=== PATIENT | male | born 1985 | race Caucasian/White ===

== ENCOUNTER 2021-01-09 10:14 | Emergency (ER) | payer MEDICAID ==
[~2021-01-09] VITALS: Ht 157.5 cm; Wt 73.9 kg
[2021-01-09 10:18] VITALS: BP 141/88
--- NOTE | 2021-01-09 10:51 | NUR ---
PT TAKEN TO RAD VIA W/C
--- NOTE | 2021-01-09 11:01 | NUR ---
35 Y/O MALE C/O LEFT SIDE/RIB AND MID BACK PAIN SINCE THURSDAY. PT STATES HE SLIPPED AND FELL IN THE SHOWER AND HAS BEEN IN PAIN SINCE. PT REPORTS PAIN /10 AND STATES PAIN WORSENS WHEN SNEEZING OR ATTEMPTING TO SLEEP/LAY DOWN. PT A/O X4 WITH EVEN AND UNLABORED RESPIRATIONS MEDHX: DENIES ALLERGIES: DENIES
--- NOTE | 2021-01-09 11:12 | NUR ---
PT BACK FROM RAD
[2021-01-09] MEDS: HYDROcodone/APAP 5/325 MG 1 TAB TAB PO ONE (11:14)
[2021-01-09] MEDS: LIDOCAINE 5% 1 EA PATCH TP SCH (11:15)
[2021-01-09] MEDS ORDERED: LID5T TP (12:19)
[2021-01-09] MEDS ORDERED: ACET-2619 PO (12:19)
[2021-01-09] MEDS ORDERED: IBUP-2213 PO (12:19)
--- NOTE | 2021-01-09 12:28 | NUR ---
DPatient discharged with v/s stable. Written and verbal after care instructions ABOUT CHEST WALL PAIN given and explained. Patient alert, oriented and verbalized understanding of instructions. Ambulatory with steady gait. All questions addressed prior to discharge. ID band removed. Patient advised to follow up with PMD. Rx of TYLENOL, IBUPROFEN, AND LIDOCAINE PATCH given. Patient educated on indication of medication including possible reaction and side effects. Opportunity to ask questions provided and answered.
[2021-01-10] MEDS ORDERED: LIDOCAINE 5% 1 EA PATCH TP SCH (09:00)
== END 2021-01-09 12:28 | disposition home or self-care (01) ==
LOC: MED 10:14
DX: S20.212A Contusion of left front wall of thorax, initial encounter (principal); Z79.899 Other long term (current) drug therapy; W19.XXXA Unspecified fall, initial encounter; Y93.89 Activity, other specified; Y92.89 Other specified places as the place of occurrence of the external cause; Y99.8 Other external cause status
CPT/HCPCS: 71045; 72072; 99284

== ENCOUNTER 2021-03-29 10:15 | Inpatient (IN) | payer MEDICAID, SELFPAY ==
[~2021-03-29] VITALS: Ht 157.5 cm; Wt 73.1 kg
[~2021-03-29 10:15] MED LIST: ACET-2619 PO; IBUP-2213 PO; LID5T TP
[2021-03-29 11:21] VITALS: BP 120/68
--- NOTE | 2021-03-29 11:27 | NUR ---
PT GIVEN URINE CUP, PT TO WAIT IN LOBBY
[2021-03-29] MEDS ORDERED: FAMOTIDINE 20 MG TAB PO ONE (11:30)
[2021-03-29] MEDS ORDERED: ONDANSETRON 4 MG ODT PO ONE (11:30)
[2021-03-29 13:09] LABS: BASOPHILS # (AUTO) 0.1 K/uL (0.00-0.22); BASOPHILS % (AUTO) 0.4 % (0.0-2.0); EOSINOPHILS # (AUTO) 0.2 K/uL (0-0.4); EOSINOPHILS % (AUTO) 1.2 % (0.0-4.0); HEMATOCRIT 42.7 % (36-52); HEMOGLOBIN 14.8 g/dL (12.0-18.0); LYMPHOCYTES # (AUTO) 1.1 K/uL (2.0-11.5); LYMPHOCYTES % (AUTO) 5.7 % (20.5-51.1); MEAN CORPUSCULAR HEMOGLOBIN 29 pg (27-31); MEAN CORPUSCULAR HGB CONC 35 g/dL (33-37); MEAN CORPUSCULAR VOLUME 83.7 fL (80-94); MONOCYTES # (AUTO) 0.9 K/uL (0.8-1.0); NEUTROPHILS # (AUTO) 16.2 K/uL (1.8-7.7); NEUTROPHILS % (AUTO) 87.7 % (42.2-75.2); PLATELET COUNT (AUTO) 351 K/uL (140-450); RED CELL DISTRIBUTION WIDTH 13.6 % (11.6-13.7); WHITE BLOOD COUNT (AUTO) 18.5 K/uL (4.8-10.8)
[2021-03-29] MEDS ORDERED: ONDA4TAB PO (13:21)
[2021-03-29] MEDS ORDERED: FAMO-92 PO (13:21)
[2021-03-29 13:33] LABS: ANION GAP 13.6 (8-16); CREATININE 0.9 mg/dL (0.6-1.3); POTASSIUM 3.6 mmol/L (3.5-5.1); TOTAL BILIRUBIN 0.7 mg/dL (0.0-1.0)
--- NOTE | 2021-03-29 13:38 | NUR ---
PT BACK FROM CT, TAKEN TO CHAIR A
[2021-03-29] MEDS ORDERED: FAMOTIDINE 20 MG TAB ONE (13:47)
[2021-03-29] MEDS ORDERED: ONDANSETRON 4 MG ODT ONE (13:47)
[2021-03-29] MEDS ORDERED: NACL 0.9% 1,000 ML IV ONE (13:55)
[2021-03-29] MEDS ORDERED: MORPHINE SULFATE 4 MG/ML SYR IVP ONE (13:55)
[2021-03-29] MEDS ORDERED: MORPHINE SULFATE 4 MG/ML SYR IVP PRN (14:15)
[2021-03-29] MEDS ORDERED: MORPHINE SULFATE 2 MG/ML SYR IVP PRN (14:15)
[2021-03-29] MEDS ORDERED: ONDANSETRON 4 MG/2 ML VIAL IVP PRN ×2 (14:15→20:45)
[2021-03-29] MEDS ORDERED: metroNIDAZOLE 500 MG/NS PREMIX 100 ML IV ONE (14:30)
[2021-03-29] MEDS ORDERED: LORazepam 2 MG/ML VIAL IM/IVP PRN (15:25)
[2021-03-29] MEDS ORDERED: ONDANSETRON 4 MG/2 ML VIAL IM/IVP PRN (15:25)
[2021-03-29] MEDS ORDERED: ACETAMINOPHEN 325 MG TAB PO PRN (15:25)
[2021-03-29] MEDS ORDERED: ZOLPIDEM 5 MG TAB PO PRN (15:25)
[2021-03-29] MEDS ORDERED: MAG SULF 2000 MG/WATER PREMIX 50 ML IV PRN (15:25)
[2021-03-29] MEDS ORDERED: DOCUSATE SODIUM 100 MG GELCAP PO PRN (15:25)
[2021-03-29] MEDS ORDERED: POTASSIUM CHLORIDE 10 MEQ TABER PO PRN (15:25)
[2021-03-29] MEDS ORDERED: ONDANSETRON 4 MG TAB PO PRN (15:25)
--- NOTE | 2021-03-29 15:53 | NUR ---
GAVE REPORT TO ANALY CASE FOR PENDING ADMISSION. ETA 10MINUTES.
--- NOTE | 2021-03-29 15:54 | NUR ---
Patient will be admitted to care of DR. PENALOZA. Admited to MED SURG. Will go to room 119B. Belongings list completed. Report to ANALY CASE.
[2021-03-29 15:58] VITALS: BP 115/67
--- NOTE | 2021-03-29 15:58 | NUR ---
PT ARRIVED ONTO UNIT FROM ER. ARRIVED VIA WHEELCHAIR ACCOMPANIED BY ER NURSE. AMBULATED FROM WHEELCHAIR TO BED. PT IS AWAKE AND ALERT, AND COOPERATIVE. FRENCH SPEAKING ONLY. RESPIRATIONS ARE EVEN AND UNLABORED, ON ROOM AIR. LUNG SOUNDS CLEAR ON AUSCULTATION. HR REGULAR, 73 BPM. BOWEL SOUNDS PRESENT IN ALL QUADRANTS. PT STATED LAST BM WAS THIS MORNING. SKIN IS WARM, DRY, AND INTACT. PT VERBALIZED MINIMAL PAIN AT THIS TIME. STATES IS IT TOLERABLE. EDUCATED PT ON HOSPITAL POLICIES, CALL LIGHT SYSTEM, AND UNIVERSAL FALL PRECAUTIONS. CALL LIGHT WITHIN REACH. ALL SAFETY MEASURES IN PLACE. WILL CONTINUE TO MONITOR.
[2021-03-29] MEDS: NACL 0.9% 1,000 ML IV SCH ×2 (16:13→22:35)
[2021-03-29 16:25] VITALS: BP 115/67
[2021-03-29] MEDS: metroNIDAZOLE 500 MG TAB PO SCH (16:38)
[2021-03-29] MEDS ORDERED: cefTRIAXone 1,000 MG VIAL ONE (16:48)
[2021-03-29 16:51] LABS: CHOL/HDL RATIO 4.9 (1-4.5); THYROID STIMULATING HORMONE 0.38 uIU/mL (0.34-3.74)
--- NOTE | 2021-03-29 18:33 | NUR ---
DID ROUNDS ON PT. PT IN BED RESTING AT THIS TIME. RESPIRATIONS ARE EVEN AND UNLABORED. NO SIGNS OF DISTRESS NOTED. PT STATES HE HAS SOME PAIN, TOLERABLE AT THIS TIME. WILL CONTINUE TO MONITOR.
--- NOTE | 2021-03-29 19:20 | NUR ---
ENDORSED PT TO SERVICE RIG OPERATOR NURSE FOR CONTINUITY OF CARE. PT IS STABLE.
--- NOTE | 2021-03-29 19:21 | NUR ---
RECEIVED REPORT FROM AM NURSE. PATIENT IS AWAKE IN BED RESTING. NO ACUTE DISTRESS NOTED. RESPIRATION EVEN UNLABORED. CALL LIGHT WITHIN REACH. NO COMPLAINTS OF PAIN AT THIS TIME. CALL LIGHT WITHIN REACH. WILL CONTINUE TO MONITOR.
[2021-03-29 20:43] LABS: PROTHROMBIN TIME 10.6 secs (10.8-13.4)
[2021-03-29] MEDS ORDERED: HYDROmorphone 1 MG/ML AMP IVP PRN (20:45)
[2021-03-29] MEDS ORDERED: ONDANSETRON 4 MG/2 ML VIAL ONE (20:46)
[2021-03-29] MEDS ORDERED: DEXAMETHASONE 4 MG/ML VIAL ONE (20:46)
[2021-03-29] MEDS ORDERED: SUCCINYLCHOLINE CHLORIDE 200 MG/10 ML VIAL IVP ONE (20:46)
[2021-03-29] MEDS ORDERED: fentaNYL citrate 0.05 MG/ML VIAL ONE (20:46)
[2021-03-29] MEDS ORDERED: ROCURONIUM 50 MG/5 ML VIAL IV ONE (20:46)
[2021-03-29] MEDS ORDERED: PROPOFOL 200 MG/20 ML VIAL IV ONE (20:46)
[2021-03-29] MEDS ORDERED: KETOROLAC 30 MG/ML VIAL ONE (20:46)
[2021-03-29] MEDS ORDERED: HYDROmorphone PFS 2 MG/ML SYR ONE ×2 (20:47→21:46)
[2021-03-29] MEDS ORDERED: BUPIVACAINE-MPF/EPI 0.25% 30 ML VIAL INJ ONE (20:52)
--- NOTE | 2021-03-29 21:00 | NUR ---
PATIENT WAS PICKED UP BY OR STAFF AWAKE NO SOB NOTED.
[2021-03-29] MEDS ORDERED: SUGAMMADEX SODIUM 200 MG/2 ML VIAL IV ONE ×2 (21:14→22:04)
[2021-03-29] MEDS ORDERED: DESFLURANE 240 ML BTL INH ONE (21:14)
[2021-03-29] MEDS ORDERED: ALBUTEROL HFA MDI 90 MCG/ACTUATION 8 GM INH ONE (21:37)
[2021-03-29] MEDS ORDERED: HYDROcodone/APAP 5/325 MG 1 TAB TAB PO PRN (22:10)
--- NOTE | 2021-03-29 22:49 | NUR ---
ENDORSED TO ANALY GOSS FOR CONTINUITY OF CARE. PT JUST CAME FROM OR.
--- NOTE | 2021-03-29 22:55 | NUR ---
RECEIVED PT FROM PACU VIA BED S/P LAP APPENDECTOMY, PT AAOX4, ABLE TO MAKE NEEDS KNOWN, 3/10 PAIN LEVEL AT THIS TIME, SURGICAL INCISION X3 COVERED WITH DERMABOND, NO SIGNS OF BLEEDING OR DRAINAGE, VITAL SIGNS MONITORED PER PROTOCOL, ON CLEAR LIQUID DIET ORDERED, PROVIDED WITH WATER, TOLERATED WELL, IVF RESUMED WITH NS AT 120ML/H, CALL LIGHT WITHIN REACH.
[2021-03-30] VITALS: BP 105/60
[2021-03-30 04:00] VITALS: BP 99/55
--- NOTE | 2021-03-30 04:30 | NUR ---
PT VOIDED FREELY PER URINAL, 4/10 TOLERABLE PAIN AT THIS TIME, MONITORED CLOSELY.
[2021-03-30] MEDS: NACL 0.9% 1,000 ML IV SCH (05:14)
--- NOTE | 2021-03-30 07:15 | NUR ---
RECEIVED ENDORSEMENT FROM CAREER DEVELOPMENT ENGINEER NURSE FOR CONTINUITY OF CARE. IV ON LEFT HAND KAM 22 RUNNING AT 120/HOUR NACL. ALL SAFETY MEASURE IN PLACE.
[2021-03-30 07:17] LABS: ANION GAP 15.5 (8-16); CARBON DIOXIDE 23.5 mmol/L (21-32); CREATININE 0.8 mg/dL (0.6-1.3)
[2021-03-30 07:20] LABS: MAGNESIUM 1.8 mg/dL (1.8-2.4); PHOSPHORUS 3.9 mg/dL (2.5-4.9)
[2021-03-30 07:31] LABS: BASOPHILS % (AUTO) 0.2 % (0.0-2.0); EOSINOPHILS % (AUTO) 0.1 % (0.0-4.0); HEMATOCRIT 38.9 % (36-52); HEMOGLOBIN 13.6 g/dL (12.0-18.0); LYMPHOCYTES # (AUTO) 0.5 K/uL (2.0-11.5); LYMPHOCYTES % (AUTO) 4.2 % (20.5-51.1); MEAN CORPUSCULAR HEMOGLOBIN 29 pg (27-31); MEAN CORPUSCULAR HGB CONC 35 g/dL (33-37); MEAN CORPUSCULAR VOLUME 83.5 fL (80-94); MONOCYTES # (AUTO) 0.1 K/uL (0.8-1.0); NEUTROPHILS # (AUTO) 12.4 K/uL (1.8-7.7); NEUTROPHILS % (AUTO) 94.5 % (42.2-75.2); PLATELET COUNT (AUTO) 299 K/uL (140-450); RED BLOOD CELL COUNT(AUTO) 4.66 MIL/uL (4.20-6.10); RED CELL DISTRIBUTION WIDTH 13.3 % (11.6-13.7); WHITE BLOOD COUNT (AUTO) 13.1 K/uL (4.8-10.8)
--- NOTE | 2021-03-30 08:00 | NUR ---
Patient's Plan of Care was discussed and reviewed with FABRICATION OPERATOR: BETSY ALICEA
[2021-03-30] MEDS: metroNIDAZOLE 500 MG TAB PO SCH (08:15)
--- NOTE | 2021-03-30 08:19 | NUR ---
GIVEN DUE MEDICATION TOLERATED WELL. NO ADVERSE REACTION NOTED. DENIES PAIN AT THIS TIME. CALL LIGHT WITH IN EASY REACH.
[2021-03-30] MEDS ORDERED: NON-FORMULARY ITEM (Famotidine* (Pepcid*) 40 MG) PO SCH (09:00)
[2021-03-30] MEDS ORDERED: FAMOTIDINE 20 MG TAB PO SCH (09:00)
--- NOTE | 2021-03-30 09:18 | NUR ---
RN GAVE IV ANTIBIOTIC TOLERATED WELL.
--- NOTE | 2021-03-30 10:19 | NUR ---
ON BED RESTING NO ADVERSE REACTION NOTED ON IV AND ORAL ANTIBIOTIC. ENCOURAGED TO INCREASE FLUID TOLERATED.
[2021-03-30] MEDS ORDERED: ACET-9525 PO (11:17)
[2021-03-30] MEDS ORDERED: FAMO20TA13 PO (11:17)
[2021-03-30] MEDS ORDERED: DOCU-299 PO (11:17)
--- NOTE | 2021-03-30 12:15 | NUR ---
PT ON STABLE CONDITION WATCHING TV. ALL SAFETY MEASURE IN PLACE. COMPLAIN OF 2/10 PAIN BUT REFUSED TO HAVE PAIN MEDICATION WHEN OFFERED. NO ADVERSE REACTION NOTED ON ANTIBIOTIC. SURGICAL SITE NO SIGN AND SYMPTOMS OF BLEEDING OR INFECTION.
[2021-03-30 12:28] VITALS: BP 101/54
--- NOTE | 2021-03-30 13:20 | NUR ---
PT ALERT ORIENTED [place] SPEAKING. GIVEN DISCHARGE PACKET AND INSTRUCTION WITH UNDERSTANDING. ALL BELONGING TAKEN BY PT. ACCOMPANIED TO WALKED TO HIS PRIVATE CAR. TOLERATED WELL.
== END 2021-03-30 13:28 | disposition home or self-care (01) | DRG 710 ==
LOC: MED 10:15 → MMU 14:30 → MTU 15:44
PROC: 0DTJ4ZZ Resection of Appendix, Percutaneous Endoscopic Approach (ICD-10-PCS; principal; 2021-03-29 16:00)
DX: A41.9 Sepsis, unspecified organism (principal); K35.80 Unspecified acute appendicitis; E66.9 Obesity, unspecified; K21.9 Gastro-esophageal reflux disease without esophagitis; Z20.822 Contact with and (suspected) exposure to COVID-19; J45.909 Unspecified asthma, uncomplicated; Z68.29 Body mass index [BMI] 29.0-29.9, adult; Z79.899 Other long term (current) drug therapy
CPT/HCPCS: 36415; 80048; 80053; 82374; 83036; 83605; 83690; 83735; 83880; 84100; 84134; 84443; 85025; 85610; 85730; 86886; 86900; 86901; 87081; 96361; 96374; 99285; J0330; J0696; J1100; J1170; J1885; J2270; J2405; J2704; J3010; J3490; J3535; J7030; J7060; Q0162

== ENCOUNTER 2023-01-13 19:09 | Emergency (ER) | payer MEDICAID ==
[~2023-01-13] VITALS: Ht 157.5 cm; Wt 77.1 kg
[~2023-01-13 19:09] MED LIST changes: -ACET-2619 PO; +ACET-9525 PO; +DOCU-299 PO; +FAMO-92 PO; +FAMO20TA13 PO; -IBUP-2213 PO; -LID5T TP
[2023-01-13 19:15] VITALS: BP 126/73; PULSE 72; RESP 16; TEMP 96.4; O2SAT 99
[2023-01-13 23:12] VITALS: BP 126/73; PULSE 72; RESP 16; TEMP 96.4; O2SAT 99
== END 2023-01-13 23:12 | disposition left against medical advice (07) ==
LOC: MED 19:09
DX: M79.645 Pain in left finger(s) (principal); Z53.21 Procedure and treatment not carried out due to patient leaving prior to being seen by health care provider
CPT/HCPCS: 99281

== ENCOUNTER 2023-01-15 11:27 | Emergency (ER) | payer MEDICAID ==
[~2023-01-15] VITALS: Ht 157.5 cm; Wt 77.1 kg
[2023-01-15 12:05] VITALS: BP 123/74; PULSE 70; RESP 19; TEMP 97.8; O2SAT 98
[2023-01-15] MEDS ORDERED: IBUPROFEN 400 MG TAB PO ONE (13:10)
[2023-01-15] MEDS ORDERED: NAPR-54 PO (14:32)
[2023-01-15] MEDS ORDERED: IBUPROFEN 400 MG TAB ONE (15:04)
[2023-01-15 15:51] VITALS: BP 125/72; PULSE 69; RESP 20; TEMP 97.8; O2SAT 98
== END 2023-01-15 15:51 | disposition home or self-care (01) ==
LOC: MED 11:27
DX: S62.627A Displaced fracture of middle phalanx of left little finger, initial encounter for closed fracture (principal); S62.615A Displaced fracture of proximal phalanx of left ring finger, initial encounter for closed fracture; J45.909 Unspecified asthma, uncomplicated; Z79.1 Long term (current) use of non-steroidal anti-inflammatories (NSAID); Z79.899 Other long term (current) drug therapy; V29.99XA Rider (driver) (passenger) of other motorcycle injured in unspecified traffic accident, initial encounter; Y93.89 Activity, other specified; Y92.410 Unspecified street and highway as the place of occurrence of the external cause; Y99.8 Other external cause status
CPT/HCPCS: 73140; 99283